=== PATIENT | male | born 1985 ===

== ENCOUNTER → 2016-11-20 | Outpatient (CLI) | payer BC ==
--- NOTE | 2016-11-20 11:14 | Diagnostic Imaging Report ---
Indications: Swelling and pain Technique: Grayscale and duplex images of the scrotum Comparison:None Findings:The right testicle measures 3.9cm in length. It demonstrates normal echogenicity. Normal Doppler flow. Normal epididymis. There is a very small hydrocele The left testicle measures 3.6 cm in length. It demonstrates normal echogenicity and normal Doppler flow. Normal epididymis. There is a small hydrocele Impression: Small bilateral hydroceles. Otherwise negative. No evidence of testicular torsion or epididymitis or orchitis
== END | disposition home or self-care (01) ==
LOC: ULS 10:00
DX: N43.3 Hydrocele, unspecified (principal); N50.811 Right testicular pain
CPT/HCPCS: 76870

== ENCOUNTER 2017-05-20 10:01 | Outpatient (CLI) | payer SELFPAY ==
--- NOTE | 2017-05-21 14:53 | Diagnostic Imaging Report ---
Indication: Left wrist pain Technique: MRI of the left wrist was imaged in a 1.5 Roxanna magnet. Pulse sequences obtained include coronal proton fast spin-echo with and without fat saturation, sagittal STIR, axial T1 fast spin-echo, proton and T2 fast spin-echo fat saturation. . Comparison: None Findings: There is a mild degree of subcutaneous edema along the dorsal aspect of the hand nonspecific in nature. There is no evidence of tenosynovitis. No high-grade tendon abnormality identified. Bone marrow signal and alignment are normal. The triangular fibrocartilage complex appears normal. No cysts or ganglia identified. Contents of the flexor retinaculum or carpal tunnel appear normal. Scapholunate and lunotriquetral ligaments are not adequately evaluated without intra-articular gadolinium but that said no obvious abnormalities seen. Impression: Minimal subcutaneous edema in the dorsum of the hand. Negative examination otherwise
== END 2017-05-20 12:01 | disposition home or self-care (01) ==
LOC: MRI 10:01
DX: M25.532 Pain in left wrist (principal); R60.0 Localized edema